=== PATIENT | male | born 1935 | race Caucasian/White ===

== ENCOUNTER 2017-01-13 20:09 | Observation (INO) | payer MEDICARE, OTHER ==
--- NOTE | ~2017-01-13 | DS ---
Discharge Summary [facility] [address] [place]. [address] NAME: HARVEY BAEZA : 39 STATUS : DIS Susan PAT#: [id number] AGE: 81 ADM/REG DATE : 01/13/17 MR#: [id number] REPORT SERV DATE: 01/16/17 DICTATED BY: JR. PEREZ WILLIAM JOHN DATE: 01/15/17 REPORT STATUS : Draft TRANSCRIBED BY: AMANDA DATE: 01/15/17 ADMISSION DATE: 01/13/2017 DISCHARGE DATE: 01/15/2017 DISCHARGE DIAGNOSES: Include: 1. Chronic obstructive pulmonary disease exacerbation. 2. Influenza one week prior to arrival. 3. Debility. 4. History of lung cancer, status post treatment from 2009 through 2011. 5. History of superficial vein thrombosis. 6. Steroid-induced hyperglycemia. OPERATIONS, PROCEDURES, AND TREATMENTS: Include: 1. PA and lateral chest x-ray done 01/13/2017, which showed hyperinflated lungs. There is a right Pancoast tumor documented in 2009 on most recent study. The right apical region was markedly improved. 2. CT angiogram chest done 01/13/2017, which showed no CTA evidence of pulmonary embolism. There was hyperinflated lungs. No superimposed acute pulmonary disease. There is benign appearing mildly complex cyst in the right upper kidney pole and bypass changes. 3. Followup chest x-ray done 01/14/2017 showed prior bypass with clear lungs that were hyperexpanded. 4. Blood cultures x2 drawn 01/13/2017 were sterile. DISCHARGE MEDICATIONS: Include: 1. Aspirin 81 mg orally daily. 2. Doxycycline 100 mg orally twice a day for five days. 3. Fenofibrate 160 mg orally daily. 4. Guaifenesin 600 mg orally every six hours. 5. Lovastatin 40 mg orally daily. 6. Multivitamin tablet orally daily. 7. Prevacid 45 mg daily. 8. Albuterol metered-dose inhaler one to two puffs every four hours as needed. 9. Neurontin 200 mg orally at bedtime. 10.Prednisone 40 mg orally daily for three days, then 20 daily for three days, then 10 daily for three days, then none. HOSPITAL COURSE: The patient was a 81-year-old white male, who presented to the emergency room on 01/13/2017, with complaint of shortness of breath after testing positive for the flu 11 days prior to presentation. The patient developed weakness and cough with clear phlegm approximately 16 days prior to presentation, went to see his primary care physician 11 days prior to presentation, had a positive influenza swab and was started on Tamiflu, also got a shot of IM steroid and IM antibiotics. He did not see improvement, continued to have dyspnea on exertion with minimally productive clear cough and came to the emergency room for further help. For details of his admission history, physical, presenting data, please see Dr. Acosta's dictated Discharge Summary [address] [address] NAME: HARVEY BAEZA : 39 STATUS : DIS Susan PAT#: [id number] AGE: 81 ADM/REG DATE : 01/13/17 MR#: [id number] REPORT SERV DATE: 01/16/17 DICTATED BY: JR. PEREZ WILLIAM JOHN DATE: 01/15/17 REPORT STATUS : Draft TRANSCRIBED BY: MODCarlene DATE: 01/15/17 history and physical. The patient was admitted to the hospital for COPD exacerbation. He was placed on IV steroids, empiric doxycycline, and inhaled medications. His breathing slowly improved, he is instructed on the use of inhaled inhalers. The patient was off oxygen ambulating autonomously and felt he was stable for discharge by 01/15/2017. Regarding debility, the patient was to be seen by Physical Therapy, however, was ambulating autonomously by discharge. Regarding the history of superficial vein thrombosis, he said he had a CT pulmonary angiogram that was negative for pulmonary embolism. The patient will be discharged home today 01/15/2017. DIET: Regular diet. ACTIVITY: As tolerated. We will follow up with Hoang Dugan, primary care physician, in [place]. This discharge took 32 minutes for patient encounter, coordination of care, and documentation. WJF/AMANDA Jose Perez Jr, MD / [id number] CC: Jose Perez Jr, MD Christopher Greene, M.D.
--- NOTE | ~2017-01-13 | HP ---
History And Physical [place] [id number] [facility] [place]. [address] NAME: HARVEY BAEZA : 39 STATUS : ADM Susan PAT#: [id number] AGE: 81 ADM/REG DATE : 01/13/17 MR#: [id number] REPORT SERV DATE: 01/13/17 DICTATED BY: WAYNE KELLEY DATE: 01/13/17 REPORT STATUS : Draft TRANSCRIBED BY: MODL DATE: 01/13/17 DATE OF ADMISSION: 01/13/2017 CHIEF COMPLAINT: A 81-year-old male presenting with positive flu about 11 days ago and persistent worsening shortness of breath. HISTORY OF PRESENTING ILLNESS: The patient's history was obtained through careful interview with the patient and daughter coupled with review of [facility] medical records. About 16 days ago, the patient developed weakness and cough that was productive of clear sputum. It seemed to progress, so he went to see his primary care physician approximately 11 days ago. He was started on Tamiflu when he had a positive screen for the flu. At that time, he was also given an IM shot of steroids and IM dose of antibiotics. When the patient did not improve over this last week, on 01/09/2017, he had another kind of antibiotic called in from his primary care physician, but he is uncertain what this antibiotic was. Despite all these interventions, the patient has had no improvement in his symptoms and has only had progression. He describes dyspnea on exertion, a minimally productive clear cough. He has had diaphoresis, but no fevers or chills. He states that his abdomen is sore from coughing, but his main complaint has been pain between his shoulder blades, a sharp quality, 8/10 severity, exacerbated by coughing. He has had about a 5-pound weight loss in the last two weeks with a decreased appetite. He admits to lightheadedness. No confusion. No rash. No nausea or vomiting. No diarrhea. REVIEW OF SYSTEMS: Otherwise, a 14-point review of systems was obtained and was negative. PAST MEDICAL HISTORY: 1. Coronary artery disease, status post stent placement x2 and CABG history, seen by Dr. Boles. 2. Lung cancer with right-sided Pancoast tumor in 2009, status post aggressive chemotherapy, but no radiation and no surgery, followed by Dr. Kb Corona, considered in remission since 2009. 3. Superficial vein thrombosis history. 4. COPD. 5. Prostate cancer in 2004, status post radiation under the care of Dr. Verdugo and followed by Dr. Arora, urologist. History And Physical [address] [address] NAME: HARVEY BAEZA : 39 STATUS : ADM Susan PAT#: [id number] AGE: 81 ADM/REG DATE : 01/13/17 MR#: [id number] REPORT SERV DATE: 01/13/17 DICTATED BY: WAYNE KELLEY DATE: 01/13/17 REPORT STATUS : Draft TRANSCRIBED BY: MODL DATE: 01/13/17 6. Peptic ulcer disease and Lyric-Kenny tear in 2006, followed by Dr. Gamez. 7. Nephrolithiasis. 8. Ischemic colitis in 2007. 9. Sinusitis. 10.Elevated cholesterol. 11.Mild diabetes. Last hemoglobin A1c of 6.1 in 12/2016. 12.Vitamin D deficiency. PAST SURGICAL HISTORY: CABG in 1994. The patient denies any other surgeries. ALLERGIES: CODEINE. SOCIAL HISTORY: Quit smoking when he was 52 years old. No alcohol use. Is . in good health. He is retired from working in a chemical plant, but has no known respiratory exposures. No asbestos exposures. He and his live in [place], [place]. He has two daughters and two sons, all of whom live locally. FAMILY HISTORY: Father of a stroke and aneurysm. Mother of heart attack. There is no family history of cancer. CURRENT MEDICATIONS: Include Tylenol p.r.n., aspirin 81 mg p.o. daily, fenofibrate 120 mg p.o. daily, Prevacid 45 mg p.o. daily, multivitamin daily, Tamiflu 10-day course completed just recently, Pravachol 20 mg p.o. daily inhaler, and some kind of antibiotics started on 01/09/2017? PHYSICAL EXAMINATION: VITAL SIGNS: Temperature 97.1, pulse 107, blood pressure 138/76, respiratory rate 22, O2 saturation 96% on room air. GENERAL: A pleasant, cooperative male, but describes distress from shortness of breath and cough. HEENT: Pupils equal, round, and reactive to light. No conjunctival pallor. No scleral icterus. Nares are patent. Oropharynx is clear of obstruction. Mildly dry mucous membranes. NECK: Trachea midline. No thyromegaly. LYMPH: No cervical lymphadenopathy. No supraclavicular lymphadenopathy. RESPIRATORY: Mostly, I identify the patient's lung exam as being "tight" with poor air movement. A minimal expiratory wheeze at the apex of each lung, but there is no focal egophony. There are no rales, not really any rhonchi, and no dullness to percussion to suggest effusion. The patient has labored respiratory effort. CARDIOVASCULAR: Tachycardic, regular rhythm. No murmurs, rubs, gallops are appreciated. No extremity edema is appreciated. ABDOMEN: Soft, nontender, nondistended. Normal bowel sounds auscultated throughout. No hepatosplenomegaly. DERMATOLOGICAL: Warm and dry extremities. No pallor, no cyanosis. PSYCHIATRIC: Normal affect. Good mood. Alert and oriented x3. LABORATORY DATA: White blood cell count 7.8, hemoglobin 16, hematocrit 48, platelets 398. History And Physical [address] [address] NAME: HARVEY BAEZA : 39 STATUS : ADM Susan PAT#: [id number] AGE: 81 ADM/REG DATE : 01/13/17 MR#: [id number] REPORT SERV DATE: 01/13/17 DICTATED BY: WAYNE KELLEY DATE: 01/13/17 REPORT STATUS : Draft TRANSCRIBED BY: AMANDA DATE: 01/13/17 Sodium 137, potassium 4.5, chloride 103, bicarb 23, BUN 23, creatinine 1.19, glucose 115. Liver enzymes within normal limits. STUDIES: 1. Chest x-ray by my own evaluation shows COPD. 2. EKG by my own evaluation shows sinus rhythm, right atrial abnormality, incomplete right bundle-branch block. ASSESSMENT AND PLAN: 1. Influenza. Completed a course of Tamiflu. We will provide supportive care. 2. Chronic obstructive pulmonary disease exacerbation. Place on IV Solu-Medrol, duo nebulizers, and doxycycline. 3. History of lung cancer treated between 2009 and 2011. 4. History of superficial vein thrombosis. I would like to check a CT angiogram of the chest to rule out pulmonary embolism in this very short of breath gentleman. KPL/MODL Wayne Kelley M.D. / [id number] CC: Jose Perez Jr, MD Christopher Greene, M.D. Davey B. Daniel, M.D.
[2017-01-13 17:15] LABS: BASOPHILS 0.3 %; BASOPHILS ABSOLUTE 0.02 10/3/uL (0.0-0.16); EOSINOPHILS 1.3 %; IMMATURE GRANULOCYTES 0.3 %; IMMATURE GRANULOCYTES ABSOLUTE 0.02 10/3/uL (0.0-0.11); LYMPHOCYTES ABSOLUTE 1.64 10/3/uL (0.67-4.30); MEAN CORPUS HGB CONC 34.2 g/dL (32.0-36.0); MEAN CORPUSCULAR HEMOGLOB 28.9 pg (26.0-34.0); MEAN PLATELET VOLUME 9.8 fL (9.2-13.0); MONOCYTES 15.6 %; MONOCYTES ABSOLUTE 1.22 10/3/uL (0.21-1.20); NEUTROPHILS 61.5 %; RBC DISTRIBUTION WIDTH 13.9 % (12.0-16.0)
[2017-01-13 17:16] LABS: ER CBC TAT 0 Hrs 09 Mins; HEMOGLOBIN 16.4 g/dL (13.6-17.8); MANUAL DIFF NO %; MEAN CORPUSCULAR VOLUME 84.7 fL (80-100); PLATELET COUNT 398 10/3/uL (150-400); RED CELL COUNT 5.67 10/6/uL (4.7-6.1); WHITE BLOOD CELLS 7.8 10/3/uL (4.5-10.5)
[2017-01-13 17:27] LABS: ALBUMIN 3.5 G/DL (3.5-5.0); CALCIUM, SERUM 9.4 MG/DL (8.5-10.4); CHLORIDE, SERUM 103 MMOL/L (96-112); CREATININE 1.19 MG/DL (0.70-1.30); GFR AFRICAN AMERICAN 67 ML/MIN (>=60); GFR NON AFRICAN AMERICAN 58 ML/MIN (>=60); GLUCOSE, SERUM 115 MG/DL (60-99); POTASSIUM, SERUM 4.5 MMOL/L (3.5-5.3); SGOT(AST) 22 U/L (5-40); SGPT(ALT) 31 U/L (5-65); SODIUM, SERUM 137 MMOL/L (135-148); TOTAL PROTEIN 7.9 G/DL (6.0-8.5)
[2017-01-13 17:29] LABS: A/G RATIO 0.8 (0.7-1.9); ALKALINE PHOSPHATASE 61 U/L (45-117); BUN (BLOOD UREA NITROGEN) 23 MG/DL (6-23); CO2 (CARBON DIOXIDE) 23 MMOL/L (24-34); GLOBULIN 4.4 G/DL (2.5-4.1); TOTAL BILIRUBIN 0.9 MG/DL (0-1.2)
[~2017-01-13 20:09] MED LIST: ASAB PO; GARLIFE PO; LOFIB160 PO; MEVACOR PO; MEVACOR40 MG PO; MULTIPLE VIT PO; PREV15 PO; PROAIR HFA; RED YEAS1 PO; T PO; TAMIFLU PO; TESS PO; ZETIA PO
[2017-01-13] MEDS ORDERED: NEUR100 PO (21:17)
[2017-01-13] MEDS ORDERED: AUG875 PO (21:19)
[2017-01-14 06:01] LABS: INTERNATIONAL NORMAL RATI 1.1 UNITS (-); PARTIAL THROMBO TIME 31.5 SEC (22.5-37.2); PROTIME (NOT ORD) 14.2 SEC (12.0-14.5)
[2017-01-14 06:09] LABS: BASOPHILS 0.2 %; BASOPHILS ABSOLUTE 0.01 10/3/uL (0.0-0.16); EOSINOPHILS 0 %; HEMOGLOBIN 14.6 g/dL (13.6-17.8); IMMATURE GRANULOCYTES 0.2 %; IMMATURE GRANULOCYTES ABSOLUTE 0.01 10/3/uL (0.0-0.11); LYMPHOCYTES 11.4 %; LYMPHOCYTES ABSOLUTE 0.72 10/3/uL (0.67-4.30); MEAN CORPUS HGB CONC 34.6 g/dL (32.0-36.0); MEAN CORPUSCULAR VOLUME 83.7 fL (80-100); MEAN PLATELET VOLUME 9.5 fL (9.2-13.0); MONOCYTES 3.2 %; NEUTROPHILS ABSOLUTE 5.39 10/3/uL (2.02-8.40); PLATELET COUNT 333 10/3/uL (150-400); RBC DISTRIBUTION WIDTH 13.9 % (12.0-16.0); RED CELL COUNT 5.04 10/6/uL (4.7-6.1); WHITE BLOOD CELLS 6.3 10/3/uL (4.5-10.5)
[2017-01-14 06:12] LABS: HEMATOCRIT 42.2 % (40.0-51.0); MANUAL DIFF NO %
[2017-01-14 06:13] LABS: A/G RATIO 0.7 (0.7-1.9); ALKALINE PHOSPHATASE 54 U/L (45-117); CALCIUM, SERUM 8.7 MG/DL (8.5-10.4); CHLORIDE, SERUM 104 MMOL/L (96-112); CO2 (CARBON DIOXIDE) 23 MMOL/L (24-34); CREATININE 0.89 MG/DL (0.70-1.30); GFR AFRICAN AMERICAN 94 ML/MIN (>=60); GFR NON AFRICAN AMERICAN 81 ML/MIN (>=60); GLOBULIN 4.2 G/DL (2.5-4.1); GLUCOSE, SERUM 130 MG/DL (60-99); POTASSIUM, SERUM 4.1 MMOL/L (3.5-5.3); SGOT(AST) 17 U/L (5-40); SGPT(ALT) 28 U/L (5-65); SODIUM, SERUM 139 MMOL/L (135-148); TOTAL BILIRUBIN 0.5 MG/DL (0-1.2); TOTAL PROTEIN 7.2 G/DL (6.0-8.5); TROPONIN I <0.02 NG/ML (<0.05)
[2017-01-14 06:17] LABS: BUN (BLOOD UREA NITROGEN) 19 MG/DL (6-23); ULTRASENSITIVE TSH 0.232 MCIU/ML (0.358-3.740)
[2017-01-14 07:07] LABS: PROCALCITONIN <0.05 ng/mL (<0.5)
[2017-01-15 05:04] LABS: BASOPHILS 0.1 %; BASOPHILS ABSOLUTE 0.01 10/3/uL (0.0-0.16); EOSINOPHILS 0 %; HEMOGLOBIN 12.9 g/dL (13.6-17.8); IMMATURE GRANULOCYTES 0.3 %; IMMATURE GRANULOCYTES ABSOLUTE 0.02 10/3/uL (0.0-0.11); LYMPHOCYTES 16.7 %; LYMPHOCYTES ABSOLUTE 1.31 10/3/uL (0.67-4.30); MANUAL DIFF NO %; MEAN CORPUS HGB CONC 33.9 g/dL (32.0-36.0); MEAN CORPUSCULAR HEMOGLOB 29.2 pg (26.0-34.0); MEAN PLATELET VOLUME 9.2 fL (9.2-13.0); MONOCYTES 13.4 %; MONOCYTES ABSOLUTE 1.05 10/3/uL (0.21-1.20); NEUTROPHILS 69.5 %; NEUTROPHILS ABSOLUTE 5.46 10/3/uL (2.02-8.40); PLATELET COUNT 353 10/3/uL (150-400); RBC DISTRIBUTION WIDTH 13.9 % (12.0-16.0); RED CELL COUNT 4.42 10/6/uL (4.7-6.1); WHITE BLOOD CELLS 7.9 10/3/uL (4.5-10.5)
[2017-01-15 05:15] LABS: BUN (BLOOD UREA NITROGEN) 21 MG/DL (6-23); CALCIUM, SERUM 8.8 MG/DL (8.5-10.4); CHLORIDE, SERUM 105 MMOL/L (96-112); CO2 (CARBON DIOXIDE) 27 MMOL/L (24-34); CREATININE 0.98 MG/DL (0.70-1.30); GFR AFRICAN AMERICAN 85 ML/MIN (>=60); GFR NON AFRICAN AMERICAN 73 ML/MIN (>=60); GLUCOSE, SERUM 110 MG/DL (60-99); POTASSIUM, SERUM 4.4 MMOL/L (3.5-5.3); SODIUM, SERUM 141 MMOL/L (135-148)
[2017-01-15] MEDS ORDERED: MONODOX100 MG PO (10:00)
[2017-01-15] MEDS ORDERED: STERAPDS12 (10:01)
== END 2017-01-15 11:42 | disposition home or self-care (01) ==
LOC: ER 20:09 → CDU1 20:25 → CDU2 21:21
PROVIDERS: Emergency Medicine; Internal Medicine; Nurse Practitioner Adult Health
DX: J44.1 Chronic obstructive pulmonary disease with (acute) exacerbation (principal); J11.1 Influenza due to unidentified influenza virus with other respiratory manifestations; I25.10 Atherosclerotic heart disease of native coronary artery without angina pectoris; R53.81 Other malaise; E78.00 Pure hypercholesterolemia, unspecified; E11.9 Type 2 diabetes mellitus without complications; E55.9 Vitamin D deficiency, unspecified; Z95.1 Presence of aortocoronary bypass graft; Z88.5 Allergy status to narcotic agent; Z87.891 Personal history of nicotine dependence; Z79.82 Long term (current) use of aspirin; Z79.899 Other long term (current) drug therapy; Z87.442 Personal history of urinary calculi
CPT/HCPCS: 71010; 71020; 71275; 80048; 80053; 82962; 83605; 83735; 83880; 84145; 84443; 84484; 85025; 85610; 85730; 87040; 87449; 87804; 87880; 93005; 94640; 96372; 96374; 96375; 96376; 99285; A9270-GY; G0378; J2405; J2920; Q9967